=== PATIENT | female | born 1950 | race Caucasian/White ===

== ENCOUNTER 2019-09-27 15:25 | Observation (INO) | payer OTHER, MEDICARE ==
[2019-09-27] MEDS ORDERED: NA CHLORIDE 0.9% 1,000 ML ONE (16:24)
[2019-09-27] MEDS ORDERED: LORazepam 2 MG/ML VIAL ONE (16:24)
--- NOTE | 2019-09-27 16:33 | RAD REPORT ---
EXAM DESCRIPTION: CT - Head Brain Wo Cont - 09/27/2019 4:25 pm CLINICAL HISTORY: Dizziness, seizure, persistent symptoms following injury COMPARISON: None. TECHNIQUE: Axial 5 mm thick images of the head were obtained without IV contrast. All CT scans are performed using dose optimization technique as appropriate and may include automated exposure control or mA/KV adjustment according to patient size. FINDINGS: No intracranial hemorrhage, mass, edema or shift of mid-line structures. No acute infarcti on changes seen. No abnormal extra-axial fluid collections. Ventricles are normal. Mastoid air cells and visualized portions of the paranasal sinuses are clear. No acute bony findings. IMPRESSION: Negative non-contrast CT head examination.
[2019-09-27 17:03] LABS: Absolute Lymphocytes (CBC) 1.3 K/uL (0.7-4.9); Basophils % 0.6 % (0-1.3); Hematocrit 40.6 % (36.0-45.0); Lymphocytes % 19.2 % (15.3-44.8); MPV 8.1 fL (7.6-11.3); RBC Red Blood Cell Count 4.45 M/uL (3.86-4.86)
--- NOTE | 2019-09-27 17:14 | EKG ---
Test Date: 2019-09-27 Test Time: 16:35:21 [employer] Operator: LIZET MEASUREMENT RESULTS: Intervals: Rate: 64 NV: 212 QRSD: 90 QT: 394 QTc: 406 [place]: P: 98 NV: 212 QRS: 48 T: 74 INTERPRETIVE STATEMENTS: Sinus rhythm with 1st degree AV block Nonspecific T wave abnormality Abnormal ECG Compared to ECG 11/06/2016 19:30:29 First degree AV block now present T-wave abnormality now present Electronically Signed On 09-27-19 17:14:05 INTENSIVIST by Ashish Ken
[2019-09-27 17:29] LABS: ALT/SGPT 24 U/L (12-78); AST/SGOT 26 U/L (15-37); Alkaline Phosphatase 92 U/L (45-117); BUN Blood Urea Nitrogen 20 mg/dL (7-18); Bicarbonate 33 mmol/L (21-32); Bilirubin Direct 0.1 mg/dL (0-0.2); Bilirubin Total 0.4 mg/dL (0.2-1.0); Glucose Level 92 mg/dL (74-106); Lipase 129 U/L (73-393); Magnesium 2.9 mg/dL (1.8-2.4); NT PRO-BNP 39 pg/mL (<125); Protein, Total 7.7 g/dL (6.4-8.2); Sodium Level 137 mmol/L (136-145); Troponin (Emerg Dept Use Only) < 0.02 ng/mL (0.0-0.045)
--- NOTE | 2019-09-27 17:32 | RAD REPORT ---
EXAM DESCRIPTION: RAD - Chest Single View - 09/27/2019 4:49 pm CLINICAL HISTORY: Cough, shortness of breath COMPARISON: October 2016 TECHNIQUE: AP portable chest image was obtained 1638 hours . FINDINGS: Lungs are clear. Lung markings are similar to comparison. Heart and vasculature are normal . No measurable pleural effusion and no pneumothorax. No acute bony abnormality seen. No acute aortic findings suspected. IMPRESSION: No acute cardiopulmonary process.
[2019-09-27 17:33] LABS: Thyroid Stimulating Hormone 2.31 uIU/mL (0.360-3.740)
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
--- NOTE | 2019-09-27 18:07 | EDPHYS ---
Physician Documentation [facility] Name: Jo Ann Bonilla Age: 69 yrs Sex: Female : 1950 Arrival Date: 09/27/2019 Time: 15:32 Bed 5 Private MD: out of town, doctor ED Physician Fadi Najera HPI: 09/27 16:13 This 69 yrs old Female presents to ER via Wheelchair with complaints of pedro Headache, Probable Seizure. 16:13 The patient complains of pain to the top of head, forehead, left frontal area, left pedro side of the back of head, left occipital area, left base of the skull, right frontal area, right side of the back of head, right occipital area and right base of the skull. The patient describes the headache as aching. Onset: The symptoms/episode began/occurred 3 day(s) ago. Associated signs and symptoms: The patient has no apparent associated signs or symptoms. Severity of symptoms: At its worst the pain was moderate, in the emergency department the pain is unchanged. Headache History: Denies prior headaches. The symptoms are alleviated by nothing. the symptoms are aggravated by nothing. Historical: - Allergies: 16:00 PENICILLINS; aj1 - Home Meds: 16:00 levothyroxine 88 mcg tab 1 tab once daily [Active]; magnesium oxide 400 mg Oral tab aj1 three times a day [Active]; torsemide 40 mg oral tab 1 tab three times daily [Active]; carbamazepine 400 mg Oral Tb12 1 tab every 12 hours [Active]; Vitamin D3 5,000 unit oral tab daily [Active]; folic acid 1 mg Oral tab 1 tab once daily [Active]; potassium chloride 20 mEq Oral TbER 1 tab once daily [Active]; trazodone 150 mg Oral tab 1 tab at bedtime [Active]; primidone 50 mg oral tab once daily [Active]; aspirin 325 mg Oral TbEC 1 tab once daily [Active]; rizatriptan 10 mg oral TbDL 1 tab as needed [Active]; - PMHx: 16:00 Hypothyroidism; Chronic pain; fentanyl pain pump; aj1 - Immunization history:: Adult Immunizations up to date. - Social history:: Smoking status: Patient/guardian denies using tobacco. - Ebola Screening: : Patient denies travel to an Ebola-affected area in the 21 days before illness onset. ROS: 16:14 Constitutional: Negative for fever, chills, and weight loss, Eyes: Negative for injury, pedro pain, redness, and discharge, ENT: Negative for injury, pain, and discharge, Neck: Negative for injury, pain, and swelling, Cardiovascular: Negative for chest pain, palpitations, and edema, Respiratory: Negative for shortness of breath, cough, wheezing, and pleuritic chest pain, Abdomen/GI: Negative for abdominal pain, nausea, vomiting, diarrhea, and constipation, Back: Negative for injury and pain, : Negative for injury, bleeding, discharge, and swelling, MS/Extremity: Negative for injury and deformity, Skin: Negative for injury, rash, and discoloration, Allergy/Immunology: Negative for hives, rash, and allergies, Endocrine: Negative for neck swelling, polydipsia, polyuria, polyphagia, and marked weight changes, Hematologic/Lymphatic: Negative for swollen nodes, abnormal bleeding, and unusual bruising. 16:14 Constitutional: Positive for 16:14 Neuro: Positive for dizziness, seizure activity, weakness. Exam: 16:14 Constitutional: This is a well developed, well nourished patient who is awake, alert, pedro and in no acute distress. Head/Face: Normocephalic, atraumatic. Eyes: Pupils equal round and reactive to light, extra-ocular motions intact. Lids and lashes normal. Conjunctiva and sclera are non-icteric and not injected. Cornea within normal limits. Periorbital areas with no swelling, redness, or edema. ENT: Nares patent. No nasal discharge, no septal abnormalities noted. Tympanic membranes are normal and external auditory canals are clear. Oropharynx with no redness, swelling, or masses, exudates, or evidence of obstruction, uvula midline. Mucous membranes moist. Neck: Trachea midline, no thyromegaly or masses palpated, and no cervical lymphadenopathy. Supple, full range of motion without nuchal rigidity, or vertebral point tenderness. No Meningismus. Chest/axilla: Normal chest wall appearance and motion. Nontender with no deformity. No lesions are appreciated. Cardiovascular: Regular rate and rhythm with a normal S1 and S2. No gallops, murmurs, or rubs. Normal PMI, no JVD. No pulse deficits. Respiratory: Lungs have equal breath sounds bilaterally, clear to auscultation and percussion. No rales, rhonchi or wheezes noted. No increased work of breathing, no retractions or nasal flaring. Abdomen/GI: Soft, non-tender, with normal bowel sounds. No distension or tympany. No guarding or rebound. No evidence of tenderness throughout. Back: No spinal tenderness. No costovertebral tenderness. Full range of motion. Skin: Warm, dry with normal turgor. Normal color with no rashes, no lesions, and no evidence of cellulitis. MS/ Extremity: Pulses equal, no cyanosis. Neurovascular intact. Full, normal range of motion. Psych: Awake, alert, with orientation to person, place and time. Behavior, mood, and affect are within normal limits. 16:14 Neuro: Orientation: is normal, appropriate for stated age, no acute changes, Mentation: is normal, appropriate for stated age, no acute changes, Memory: appropriate for stated age, no acute changes, Cranial nerves: grossly normal, is grossly normal based on the patient's age, no acute changes, Cerebellar function: is grossly normal based on the patient's age, no acute changes, Motor: is normal, Sensation: no obvious gross deficits, appropriate no acute changes, Gait: not tested. Deep tendon reflexes are 2+ (normal) in the bilateral brachioradialis, bicep, tricep and patellar and Achilles tendons, Babinski testing is normal, seizure activity, is not displayed by the patient. Vital Signs: 16:00 BP 132 / 86; Pulse 82; Resp 18; Temp 98.5; Pulse Ox 99% on R/A; Weight 88.9 kg (R); aj1 Height 5 ft. 5 in. (165.10 cm) (R); Pain 10/10; 19:20 BP 104 / 61; Pulse 66; Resp 16; Pulse Ox 96% on R/A; Pain 8/10; lp1 20:37 BP 104 / 55; Pulse 60; Resp 16; Pulse Ox 97% on R/A; Pain 2/10; lp1 16:00 Body Mass Index 32.62 (88.90 kg, 165.10 cm) aj1 MDM: 16:00 Patient medically screened. [facility] 16:16 Data reviewed: vital signs, nurses notes, lab test result(s), EKG, radiologic studies, [facility] CT scan, plain films. 09/27 16:11 Order name: Basic Metabolic Panel; Complete Time: 18:00 [facility] 09/27 16:11 Order name: CBC with Diff; Complete Time: 18:00 [facility] 09/27 16:11 Order name: LFT's; Complete Time: 18:00 [facility] 09/27 16:11 Order name: Magnesium; Complete Time: 18:00 [facility] 09/27 16:11 Order name: NT PRO-BNP; Complete Time: 18:00 [facility] 09/27 16:11 Order name: PT-INR; Complete Time: 18:00 [facility] 09/27 16:11 Order name: Troponin (emerg Dept Use Only); Complete Time: 18:00 [facility] 09/27 16:11 Order name: XRAY Chest (1 view); Complete Time: 18:00 [facility] 09/27 16:11 Order name: Lipase; Complete Time: 18:00 [facility] 09/27 16:11 Order name: CT Head Brain wo Cont; Complete Time: 18:00 [facility] 09/27 16:11 Order name: Urine Culture [facility] 09/27 16:11 Order name: Tegretol Level; Complete Time: 18:00 [facility] 09/27 16:13 Order name: TSH; Complete Time: 18:00 [facility] 09/27 18:21 Order name: Urine Dipstick--Ancillary (enter results); Complete Time: 20:19 09/27 16:11 Order name: EKG; Complete Time: 16:12 [facility] 09/27 16:11 Order name: Cardiac monitoring; Complete Time: 16:59 [facility] 09/27 16:11 Order name: EKG - Nurse/Tech; Complete Time: 16:59 [facility] 09/27 16:11 Order name: IV Saline Lock; Complete Time: 16:59 [facility] 09/27 16:11 Order name: Labs collected and sent; Complete Time: 16:59 [facility] 09/27 16:11 Order name: O2 Per Protocol; Complete Time: 16:59 [facility] 09/27 19:29 Order name: CONS Pharmacy Consult [facility] 09/27 19:30 Order name: Regular [facility] 09/27 19:30 Order name: EEG Request [facility] 09/27 19:34 Order name: Brain Wo Cont [facility] 09/27 16:11 Order name: O2 Sat Monitoring; Complete Time: 16:59 [facility] 09/27 16:11 Order name: Urine Dipstick-Ancillary (obtain specimen); Complete Time: 18:18 pedro Administered Medications: 16:55 Drug: Ativan 1 mg Route: IVP; Site: left antecubital; hb 17:30 Follow up: Response: No adverse reaction hb 16:55 Drug: NS 0.9% 1000 ml Route: IV; Rate: 1 bolus; Site: left antecubital; hb 18:45 Drug: Rocephin 1 grams Route: IV; Rate: per protocol; Site: left antecubital; sg 20:31 Drug: Thiamine 100 mg Route: IV; Rate: bolus; Site: left antecubital; lp1 20:44 Follow up: IV Status: Completed infusion; IV Intake: 100ml lp1 20:31 Drug: foLIC Acid 1 mg Route: IVPB; Site: left antecubital; lp1 20:45 Follow up: IV Status: Completed infusion lp1 Disposition: 09/27/19 18:05 Hospitalization ordered by Mesha Silverman for Inpatient Admission. Preliminary diagnosis are Weakness, Headache, Epileptic seizures related to external causes, Syncope and collapse - near, Unspecified kidney failure, Volume depletion. - Bed requested for Telemetry/MedSurg (Inpatient). - Status is Inpatient Admission. lp1 - Condition is Fair. - Problem is new. - Symptoms have improved. UTI on Admission? No Signatures: Dispatcher [employer] EDIA Pat Mcdaniel RN RN aj1 Ponce Barth RN RN Fadi Najera MD MD cha Pena, Laura, RN RN lp1 Terri Obrien RN RN Samantha Pulido RN RN Corrections: (The following items were deleted from the chart) 19:34 19:30 Brain Wo Cont ordered. EDIA EDIA 19:54 18:05 Hospitalization Ordered by Mesha Silverman MD for Inpatient Admission. Preliminary cg diagnosis is Weakness; Headache; Epileptic seizures related to external causes; Syncope and collapse - near; Unspecified kidney failure; Volume depletion. Bed requested for Telemetry/MedSurg (Inpatient). Status is Inpatient Admission. Condition is Fair. Problem is new. Symptoms have improved. UTI on Admission? No. pedro 20:45 19:54 09/27/2019 18:05 Hospitalization Ordered by Mesha Silverman MD for Inpatient lp1 Admission. Preliminary diagnosis is Weakness; Headache; Epileptic seizures related to external causes; Syncope and collapse - near; Unspecified kidney failure; Volume depletion. Bed requested for Telemetry/MedSurg (Inpatient). Status is Inpatient Admission. Condition is Fair. Problem is new. Symptoms have improved. UTI on Admission? No. cg
[2019-09-27 18:23] LABS: Urine Blood NEGATIVE (NEG); Urine Glucose NEGATIVE (NEG); Urine Protein NEGATIVE (NEG); Urine Specific Gravity 1.015 (1.005-1.030)
[2019-09-27] MEDS ORDERED: CEFTRIAXONE/SWI 1gm 1 GM/10 ML SYR ONE (18:40)
[2019-09-27] MEDS ORDERED: MORPHINE 2 MG/ML SYR IV PRN (19:23)
[2019-09-27] MEDS ORDERED: ONDANSETRON 4 MG/2 ML VIAL IV PRN (19:23)
[2019-09-27] MEDS ORDERED: ACETAMINOPHEN 500 MG TAB PO PRN (19:23)
[2019-09-27] MEDS ORDERED: MORPHINE 2 MG/ML SYR ONE (20:11)
[2019-09-27] MEDS ORDERED: THIAMINE 200 MG/2 ML INJ ONE (20:26)
[2019-09-27] MEDS ORDERED: FOLIC ACID 5 MG/ML VIAL ONE (20:27)
[2019-09-27] MEDS ORDERED: NA CHLORIDE 0.9% 100 ML IV ONE (20:27)
[2019-09-27] MEDS: NA CHLORIDE 0.9% 1,000 ML IV SCH (23:23)
[2019-09-27] MEDS: levETIRAcetam 500 MG TAB PO SCH (23:23)
[2019-09-28 01:19] VITALS: BMI 34.6
[2019-09-28] MEDS ORDERED: FENTANYL CITR 100 MCG/2 ML IV ONE (01:20)
[2019-09-28] MEDS ORDERED: ALPRAZOLAM 0.5 MG TABLET PO ONE (01:21)
[2019-09-28 04:26] LABS: Absolute Lymphocytes (CBC) 2.2 K/uL (0.7-4.9); Basophils % 1.1 % (0-1.3); MPV 8.8 fL (7.6-11.3); RBC Red Blood Cell Count 3.68 M/uL (3.86-4.86)
[2019-09-28 04:55] LABS: Bilirubin Total 0.3 mg/dL (0.2-1.0); Potassium 3.3 mmol/L (3.5-5.1)
[2019-09-28] MEDS ORDERED: NA CHLORIDE 0.9% 500 ML IV ONE (06:27)
[2019-09-28] MEDS ORDERED: RIZATRIPTAN 10 MG PO PRN (06:28)
[2019-09-28] MEDS ORDERED: carBAMazepine 200 MG TAB PO SCH (07:00)
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
[2019-09-28] MEDS ORDERED: HOME MED 1 EA UNK (Potassium Chloride [Potassium Chloride] 20 MEQ) PO SCH (09:00)
[2019-09-28] MEDS: MAGNESIUM OXIDE 400 MG TAB PO SCH ×3 (09:00→22:06)
[2019-09-28] MEDS: carBAMazepine 200 MG TAB PO SCH ×2 (10:07→18:39)
[2019-09-28] MEDS: FOLIC ACID 1 MG TABLET PO SCH (10:07)
[2019-09-28] MEDS: levETIRAcetam 500 MG TAB PO SCH ×2 (10:07→22:06)
--- NOTE | 2019-09-28 10:25 | RAD REPORT ---
EXAM DESCRIPTION: MRI - Brain Wo Cont - 09/28/2019 8:14 am CLINICAL HISTORY: sz, left-sided head pain, vomiting and weakness COMPARISON: CT head September 27 TECHNIQUE: Sagittal T1-weighted images were obtained along with axial PD, heavily T2-weighted and T2 -FLAIR images. Axial DWI and ADC mapping sequences were also obtained along with coronal heavily T2-w eighted images. FINDINGS: No intracranial hemorrhage, mass or acute infarction. There is no edema or shift of midlin e structures. No measurable atrophy present. Patient has a few T2 white matter hyperintensities most typical for chronic ischemic change. Ventricles are normal. No globe or orbital content acute finding . No sella or supra sella abnormality. Patient has normal variant hyperostosis frontalis interna. Gra y-matter/white matter junction is preserved. Signal voids are seen as a normal finding in the major i ntracranial vessels. Mastoid air cells and paranasal sinuses are clear. IMPRESSION: Minimal chronic ischemic change scattered throughout the cerebral white matter. No acute intracranial finding.
--- NOTE | 2019-09-28 13:07 | ECHO ---
HEIGHT: 5 ft 5 in WEIGHT: 208 lb 0 oz DATE OF STUDY: 09/28/[address]: Tito Marte MD 2-DIMENSIONAL: YES M.MODE: YES DOPPLER: YES COLOR FLOW: YES TDS: NO PORTABLE: NO DEFINITY: NO BUBBLE STUDY: NO DIAGNOSIS: CONGESTIVE HEART FAILURE CARDIAC HISTORY: CATHERIZATION: NO SURGERY: NO PROSTHETIC VALVE: NO PACEMAKER: NO MEASUREMENTS (cm) DIASTOLIC (NORMALS) SYSTOLIC (NORMALS) IVSd 0.8 (0.6-1.2) LA Diam (1.9-4.0) LVEF 53% LVIDd 4.6 (3.5-5.7) LVIDs 3.3 (2.0-3.5) %FS 27% LVPWd 0.9 (0.6-1.2) Ao Diam 2.3 (2.0-3.7) 2 DIMENSIONAL ASSESSMENT: RIGHT ATRIUM: NORMAL LEFT ATRIUM: NORMAL RIGHT VENTRICLE: NORMAL LEFT VENTRICLE: NORMAL TRICUSPID VALVE: NORMAL MITRAL VALVE: NORMAL PULMONIC VALVE: NORMAL AORTIC VALVE: NORMAL PERICARDIAL EFFUSION: NONE AORTIC ROOT: NORMAL LEFT VENTRICULAR WALL MOTION: PARADOXICAL SEPTUM. DOPPLER/COLOR FLOW: MILD TRICUSPID REGURGITATION. COMMENTS: PARADOXICAL SEPTAL WALL MOTION. NORMAL EJECTION FRACTION. MILD TRICUSPID REGURGITATION NORMAL RIGHT VENTRICULAR SYSTOLIC PRESSURE. TECHNOLOGIST: DANIEL MONTAÑO
[2019-09-28] MEDS: NA CHLORIDE 0.9% 1,000 ML IV SCH (13:47)
[2019-09-28] MEDS: SUMATRIPTAN SUCC 6MG/0.5ML VIAL SQ PRN (14:17)
--- NOTE | 2019-09-28 17:41 | P.PN ---
Subjective Date of Service: 09/28/19 Chief Complaint: Seizure/persistent headache/history of traumatic brain injury Patient reporting persistent headache. Subsequent history taken from patient and her spouse. According to the patient, she was brought to the emergency department because she was found to be very weak at her doctor's office. She also reports being drowsy and sleeping most of the day over the last several weeks. She denied any sudden passing. Spouse reports patient had not had a grand mal seizure over a long period of time but does notice some tremors which he described as minor seizures. She is on pain pump for chronic lumbar pain. Physical Examination - Vital Signs Temperature: 97.1 F Blood Pressure: 101/57 Pulse: 56 Respirations: 16 Pulse Ox (%): 98 - Physical Exam General: Alert, In no apparent distress, Oriented x3 HEENT: Mucous membr. moist/pink Neck: Supple Respiratory: Clear to auscultation bilaterally, Normal air movement Cardiovascular: No edema, Normal pulses, Regular rate/rhythm, Normal S1 S2, No murmurs Gastrointestinal: Normal bowel sounds, Soft and benign, Non-distended, No tenderness Musculoskeletal: No swelling, No erythema Integumentary: No rashes, No tenderness/swelling Neurological: Normal speech, Normal strength at 5/5 x4 extr, Normal tone, Cranial nerves 3-12 intact - Studies Laboratory Data (last 24 hrs) 09/27/19 16:43: PT 11.8, INR 1.00 Assessment And Plan - Current Problems (Diagnosis) (1) Headache Current Visit: Yes Status: Acute Qualifiers: Headache type: unspecified Intractability: intractable (2) Migraine aura, persistent Current Visit: Yes Status: Acute Qualifiers: Intractability: intractable (3) H/O traumatic brain injury Current Visit: Yes Status: Chronic (4) Chronic pain disorder Onset Date: 11/07/16 Current Visit: No Status: Chronic (5) Seizure disorder Onset Date: 11/07/16 Current Visit: No Status: Chronic (6) Polypharmacy Current Visit: Yes Status: Acute - Plan MRI of the brain reviewed. No acute CVA. EEG has been performed and result is pending. I suspect polypharmacy for multiple psychotropic medication including clonazepam , trazodone, carbamazepine and opioids. Discontinue clonazepam. Case discussed with Dr. Pimentel. Carbamazepine level is upper limits of normal. Patient may not be tolerating this level. Keppra added for possible seizures until seizure has been ruled out. Dr. Jones to see and evaluate patient.
[2019-09-28] MEDS: TOPIRAMATE 25 MG TAB PO SCH (18:39)
[2019-09-28] MEDS ORDERED: PRIMIDONE 50 MG TAB PO SCH (21:00)
[2019-09-28] MEDS ORDERED: TRAZODONE 150 MG TAB PO SCH ×2 (21:00)
[2019-09-28] MEDS ORDERED: ASPIRIN 325 MG TAB PO SCH (21:00)
[2019-09-28] MEDS ORDERED: TRAZODONE 50 MG TABLET PO SCH (21:00)
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
[2019-09-29] MEDS: carBAMazepine 200 MG TAB PO SCH ×2 (00:13→08:08)
[2019-09-29] MEDS: SUMATRIPTAN SUCC 6MG/0.5ML VIAL SQ PRN (00:13)
[2019-09-29] MEDS: NA CHLORIDE 0.9% 1,000 ML IV SCH ×2 (03:25→12:00)
[2019-09-29 04:33] LABS: Absolute Lymphocytes (CBC) 1.6 K/uL (0.7-4.9); Basophils % 1.2 % (0-1.3); Hematocrit 31.7 % (36.0-45.0); Lymphocytes % 40.7 % (15.3-44.8); RBC Red Blood Cell Count 3.44 M/uL (3.86-4.86)
[2019-09-29 04:41] LABS: Potassium 4.1 mmol/L (3.5-5.1)
[2019-09-29] MEDS ORDERED: LEVOTHYROXINE SOD 0.088 MG TAB PO SCH (06:00)
[2019-09-29 08:02] VITALS: O2SAT 98
[2019-09-29] MEDS: MAGNESIUM OXIDE 400 MG TAB PO SCH ×2 (08:04→13:45)
[2019-09-29] MEDS: TOPIRAMATE 25 MG TAB PO SCH (08:04)
[2019-09-29] MEDS: levETIRAcetam 500 MG TAB PO SCH (08:04)
[2019-09-29] MEDS: FOLIC ACID 1 MG TABLET PO SCH (08:05)
--- NOTE | 2019-09-29 08:36 | EEG ---
CHART: [id number] TEST ID#: [id number] DATE OF STUDY: 09/28/2019 THE EEG WAS RECORDED IN THE EEG LABORATORY ON A 17 CHANNEL MACHINE. ELECTRODES WERE APPLIED IN THE USUAL MANNER USING THE INTERNATIONAL 10-20 SYSTEM. THE WAKING BACKGROUND RHYTHM IN THIS RECORD CONSISTS OF FAIRLY WELL DEVELOPED AND FAIRLY WELL ORGANIZED WAVES OF 7 HZ., IN A WIDE DISTRIBUTION WHICH ATTENUATE NORMALLY WITH EYE OPENING. LOW VOLTAGE 15-18 HZ ACTIVITY IS EXPRESED IN THE FRONTAL REGIONS. THERE ARE NO FOCAL OR LATERALIZING FEATURES. NO EPILEPTIFORM ACTIVITY APPEARS. SLEEP DID NOT OCCUR. HYPERVENTILATION WAS NOT PERFORMED. PHOTIC STIMULATION PRODUCED NO DRIVING BILATERALLY. IMPRESSION: THIS IS A MILDLY ABNORMAL ROUTINE EEG DUE TO A MILDLY SLOW BACKGROUND. THIS IS A NON-SPECIFIC FINDING INDICATING THE PRESENCE OF A MILD DIFFUSE DISTURBANCE IN CEREBRAL FUNCTION.
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
[2019-09-29 13:05] VITALS: BP 104/60; TEMP 97
--- OUTSIDE RECORDS SUMMARY | 2019-10-03 21:40 | XMS REPORT ---
:1950 [facility] Address [address] [place] [address] Care Team Providers Name Role Phone JONATHAN DALYMissy Unavailable Unavailable Problems This patient has no known problems. Allergies, Adverse Reactions, Alerts This patient has no known allergies or adverse reactions. Medications This patient has no known medications. Results Test Description Test Time Test Comments Text Results Atomic Results Result Comments POCT-HEMOGLOBIN METER 2018-12-07 05:55:00 Test Item Value Reference Range Comments POC-HEMOGLOBIN METER (BEAKER) (test 12.7 g/dL 12.0-15.0 TESTED AT [facility] [address] [facility] pjpo=[id number]) [facility] [id number] BASIC METABOLIC [id number] 13:48:00 Test Item Value Reference Range Comments SODIUM (BEAKER) (test 139 meq/L 136-145 ejar=610) POTASSIUM (BEAKER) (test 4.2 meq/L 3.5-5.1 qqwo=945) CHLORIDE (BEAKER) (test 100 meq/L 98-107 khbu=006) CO2 (BEAKER) (test 33 meq/L 22-29 sqhg=249) BLOOD UREA NITROGEN 14 mg/dL 7-21 (BEAKER) (test mjyh=025) CREATININE (BEAKER) (test 1.07 mg/dL 0.57-1.25 nzqh=933) GLUCOSE RANDOM (BEAKER) 83 mg/dL 70-105 (test zhck=306) CALCIUM (BEAKER) (test 8.8 mg/dL 8.4-10.2 nmrj=086) EGFR (BEAKER) (test 51 mL/min/1.73 sq m ESTIMATED GFR IS NOT xbzs=9931) ACCURATE CREATININE CLEARANCE IN PREDICTING GLOMERULAR FILTRATION RATE. ESTIMATED GFR IS NOT APPLICABLE FOR DIALYSIS PATIENTS.
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
== END 2019-09-29 13:58 | disposition home health service (06) ==
LOC: ER 15:25 → ERHOLD 20:15 → 4TH 20:16
PROVIDERS: ADMIT Hospitalist; ATTEND Internal Medicine
DX: G43.509 Persistent migraine aura without cerebral infarction, not intractable, without status migrainosus (principal); N17.9 Acute kidney failure, unspecified; F90.9 Attention-deficit hyperactivity disorder, unspecified type; G40.909 Epilepsy, unspecified, not intractable, without status epilepticus; F41.8 Other specified anxiety disorders; E03.9 Hypothyroidism, unspecified; G89.4 Chronic pain syndrome; G47.33 Obstructive sleep apnea (adult) (pediatric)
CPT/HCPCS: 95816; 93005; 93306; 87088; 85025 ×3; 87086; 80048 ×2; 36415 ×2; 83735; 80156; 85610; 80076; 84443; 81003; 84484; 83690; 80053; 83880; 70450; 71045; 70551; 97112; 97116; 97161; 96375; 96374; 99285; J3030 ×2; J3411; J3010; J2270; J0696; J7040; J7030 ×4; G0378 ×4

== ENCOUNTER 2019-12-03 19:41 | Emergency (ER) | payer OTHER, MEDICARE ==
--- OUTSIDE RECORDS SUMMARY | 2019-12-03 19:43 | XMS REPORT ---
:1950 [facility] Address [address] [place] [address] Care Team Providers Name Role Phone JONATHAN DALY Unavailable Unavailable Problems This patient has no known problems. Allergies, Adverse Reactions, Alerts This patient has no known allergies or adverse reactions. Medications This patient has no known medications. Results Test Description Test Time Test Comments Text Results Atomic Results Result Comments POCT-HEMOGLOBIN METER 2018-12-07 05:55:00 Test Item Value Reference Range Comments POC-HEMOGLOBIN METER (BEAKER) (test 12.7 g/dL 12.0-15.[address] [facility] [address] [place] [address] [id number]) [facility] [address] BASIC METABOLIC [id number] 13:48:00 Test Item Value Reference Range Comments SODIUM (BEAKER) (test 139 meq/L 136-145 xlvy=551) POTASSIUM (BEAKER) (test 4.2 meq/L 3.5-5.1 mnic=959) CHLORIDE (BEAKER) (test 100 meq/L 98-107 xhyq=713) CO2 (BEAKER) (test 33 meq/L 22-29 ikob=079) BLOOD UREA NITROGEN 14 mg/dL 7-21 (BEAKER) (test jkai=896) CREATININE (BEAKER) (test 1.07 mg/dL 0.57-1.25 zpbq=477) GLUCOSE RANDOM (BEAKER) 83 mg/dL 70-105 (test mjxk=471) CALCIUM (BEAKER) (test 8.8 mg/dL 8.4-10.2 jyip=041) EGFR (BEAKER) (test 51 mL/min/1.73 sq m ESTIMATED GFR IS NOT [id number]) ACCURATE CREATININE CLEARANCE IN PREDICTING GLOMERULAR FILTRATION RATE. ESTIMATED GFR IS NOT APPLICABLE FOR DIALYSIS PATIENTS.
[2019-12-03] MEDS ORDERED: MORPHINE 4 MG/ML SYR ONE ×2 (20:04→21:02)
[2019-12-03] MEDS ORDERED: ONDANSETRON 4 MG/2 ML VIAL ONE (20:04)
--- NOTE | 2019-12-03 20:48 | RAD REPORT ---
EXAM DESCRIPTION: RAD - Pelvis - 12/03/2019 8:39 pm CLINICAL HISTORY: Pelvic pain status post injury FINDINGS: No fracture or dislocation is seen. Osteoporosis If the patient continues to have symptoms to suggest an occult fracture then CT would be recommended
--- NOTE | 2019-12-03 20:49 | RAD REPORT ---
EXAM DESCRIPTION: RAD - Hip Left 2 View - 12/03/2019 8:38 pm CLINICAL HISTORY: Left hip pain status post injury FINDINGS: No fracture or dislocation is seen. Osteoporosis If the patient continues to have symptoms to suggest an occult fracture then CT would be recommended
[2019-12-03 21:34] LABS: Albumin 3.6 g/dL (3.4-5.0); Bilirubin Direct 0.1 mg/dL (0-0.2); Bilirubin Total 0.4 mg/dL (0.2-1.0); Potassium 4.1 mmol/L (3.5-5.1); Protein, Total 7.1 g/dL (6.4-8.2)
[2019-12-03 21:36] LABS: Absolute Lymphocytes (CBC) 1.4 K/uL (0.7-4.9); Basophils % 0.4 % (0-1.3); Lymphocytes % 23.5 % (15.3-44.8); MPV 7.8 fL (7.6-11.3); RBC Red Blood Cell Count 3.41 M/uL (3.86-4.86)
--- NOTE | 2019-12-03 22:43 | EDPHYS ---
Physician Documentation [facility] Name: Jo Ann Bonilla Age: 69 yrs Sex: Female : 1950 Arrival Date: 12/03/2019 Time: 19:46 Bed 17 Private MD: ED Physician Jairo Mccall HPI: 12/03 20:45 This 69 yrs old Female presents to ER via EMS with complaints of low back and kdr left hip pain. 20:45 Details of fall: The patient fell from seated position, out of a chair. Onset: The kdr symptoms/episode began/occurred suddenly, just prior to arrival. Associated injuries: The patient sustained upper back injury, contusion, pain, pain with movement, injury to the low back. Severity of symptoms: At their worst the symptoms were moderate, in the emergency department the symptoms are unchanged. The patient has not experienced similar symptoms in the past. The patient has not recently seen a physician. The patient was sitting in a bar chair that collapsed and she fell straight down. The patient then apparently had several seizures. The patient now has c-collar and is c/o pain on mid to low back. She denies had injury or LOC. Family reports several seizures after the fall. The patient is at baseline now. Historical: - Allergies: 19:55 PENICILLINS; 19:55 Depakote; 19:55 Dilantin; - PMHx: 19:55 Chronic pain; fentanyl pain pump; Hypothyroidism; - PSHx: 19:55 Spinal Fusion; - Immunization history:: Adult Immunizations up to date. - Social history:: Smoking status: Patient/guardian denies using tobacco. - Ebola Screening: : Patient negative for fever greater than or equal to 101.5 degrees Fahrenheit, and additional compatible Ebola Virus Disease symptoms Patient denies exposure to infectious person. ROS: 20:45 Constitutional: Negative for fever, chills, and weight loss, Eyes: Negative for injury, kdr pain, redness, and discharge, ENT: Negative for injury, pain, and discharge, Neck: Negative for injury, pain, and swelling, Cardiovascular: Negative for chest pain, palpitations, and edema, Respiratory: Negative for shortness of breath, cough, wheezing, and pleuritic chest pain, Abdomen/GI: Negative for abdominal pain, nausea, vomiting, diarrhea, and constipation, : Negative for injury, bleeding, discharge, and swelling, Skin: Negative for injury, rash, and discoloration, Neuro: Negative for headache, weakness, numbness, tingling, and seizure activity. Psych: Negative for depression, anxiety, suicide ideation, homicidal ideation, and hallucinations, Allergy/Immunology: Negative for hives, rash, and allergies, Endocrine: Negative for neck swelling, polydipsia, polyuria, polyphagia, and marked weight changes, Hematologic/Lymphatic: Negative for swollen nodes, abnormal bleeding, and unusual bruising. 20:45 Back: Positive for injury or acute deformity, decreased range of motion, pain at rest, pain with movement, of the thoracic area, low back area and mid back area, Negative for Exam: 20:45 Constitutional: This is a well developed, well nourished patient who is awake, alert, kdr and in no acute distress. Head/Face: Normocephalic, atraumatic. Eyes: Pupils equal round and reactive to light, extra-ocular motions intact. Lids and lashes normal. Conjunctiva and sclera are non-icteric and not injected. Cornea within normal limits. Periorbital areas with no swelling, redness, or edema. Neck: Trachea midline, no thyromegaly or masses palpated, and no cervical lymphadenopathy. Supple, full range of motion without nuchal rigidity, or vertebral point tenderness. No Meningismus. Chest/axilla: Normal chest wall appearance and motion. Nontender with no deformity. No lesions are appreciated. Cardiovascular: Regular rate and rhythm with a normal S1 and S2. No gallops, murmurs, or rubs. Normal PMI, no JVD. No pulse deficits. Respiratory: Lungs have equal breath sounds bilaterally, clear to auscultation and percussion. No rales, rhonchi or wheezes noted. No increased work of breathing, no retractions or nasal flaring. Abdomen/GI: Soft, non-tender, with normal bowel sounds. No distension or tympany. No guarding or rebound. No evidence of tenderness throughout. Skin: Warm, dry with normal turgor. Normal color with no rashes, no lesions, and no evidence of cellulitis. Neuro: Awake and alert, GCS 15, oriented to person, place, time, and situation. Cranial nerves II-XII grossly intact. Motor strength 5/5 in all extremities. Sensory grossly intact. Cerebellar exam normal. Normal gait. Psych: Awake, alert, with orientation to person, place and time. Behavior, mood, and affect are within normal limits. 20:45 Back: pain, that is moderate, ROM is painful, with all movement, normal spinal alignment noted, CVA tenderness, that is mild, is noted bilaterally, vertebral tenderness, is appreciated at thoracic spine and lumbar spine. Vital Signs: 19:53 BP 116 / 67; Pulse 75; Resp 18; Temp 98.2; Pulse Ox 100% ; Weight 82.55 kg; Height 5 wh ft. 5 in. (165.10 cm); Pain 10/10; 21:00 BP 134 / 110; Pulse 106; Resp 18; Pulse Ox 100% ; wh 22:14 BP 124 / 64; Pulse 71; Resp 18; Pulse Ox 99% on R/A; Pain 5/10; wh 23:40 BP 111 / 64; Pulse 72; Resp 18; Pulse Ox 97% on R/A; wh 19:53 Body Mass Index 30.29 (82.55 kg, 165.10 cm) wh MDM: 20:45 Data reviewed: vital signs, nurses notes, lab test result(s), radiologic studies. kdr Counseling: I had a detailed discussion with the patient and/or guardian regarding: the historical points, exam findings, and any diagnostic results supporting the discharge/admit diagnosis, lab results, radiology results. 22:42 Patient medically screened. kdr 12/04 00:11 ED course: The patient was improved with the care and interventions provided. The were kdr happy with the plan for discharge and follow-up. She was able to get out of bed and transfer to a chair with little more than her usual pain. 12/03 18:59 Order name: Amylase, Serum; Complete Time: : 12/03 18:59 Order name: Basic Metabolic Panel; Complete Time: : 12/03 18:59 Order name: CBC with Diff; Complete Time: : 12/03 18:59 Order name: Creatinine for Radiology; Complete Time: 00: 12/03 18:59 Order name: ETOH Level; Complete Time: 00:41 12/03 18:59 Order name: Hepatic Function; Complete Time: : 12/03 18:59 Order name: Lipase; Complete Time: 22: 12/03 19:59 Order name: Type And Screen; Complete Time: : 12/03 20:01 Order name: Pelvis XRAY; Complete Time: : [facility] 12/03 20:01 Order name: Hip Left 2 View XRAY; Complete Time: : [facility] 12/03 20:44 Order name: CT Traumagram (Head C Spine CAP wo con) kdr 12/03 19:59 Order name: EKG; Complete Time: 20:00 12/03 19:59 Order name: EKG - Nurse/Tech; Complete Time: 20:29 12/03 19:59 Order name: IV Saline Lock; Complete Time: : 12/03 19:59 Order name: Labs collected and sent; Complete Time: : 12/03 19:59 Order name: NPO; Complete Time: 20:30 12/03 19:59 Order name: O2 Per Protocol; Complete Time: 20:30 12/03 19:59 Order name: O2 Sat Monitoring; Complete Time: 20:30 Administered Medications: 12/03 20:25 Drug: morphine 4 mg Route: IM; Site: left gluteus; wh 23:27 Follow up: Response: No adverse reaction; Pain is decreased; RASS: Alert and Calm (0) 20:29 Not Given ( changed order): morphine 4 mg IVP once; RASS on ADMIN: Combtv4, Very wh Agttd3, Agttd2, Rstlss1, AlertClm0, Drwsy-1, Lt Sdtn-2, Mod Sdtn-3, Dp Sdtn-4, UnArsble-5 21:04 Drug: Zofran 4 mg Route: IVP; Site: left antecubital; wh 23:27 Follow up: Response: No adverse reaction; Nausea is decreased wh 21:04 Drug: morphine 4 mg Route: IVP; Site: left antecubital; 23:27 Follow up: Response: No adverse reaction; Pain is decreased; RASS: Alert and Calm (0) 23:24 Drug: fentaNYL (PF) 50 mcg Route: IVP; Site: left antecubital; wh 23:42 Follow up: Response: No adverse reaction; Pain is decreased; RASS: Alert and Calm (0) 23:26 Drug: Robaxin 1 grams Route: IVPB; Infused Over: 1 hrs; Site: left antecubital; 12/04 00:22 Follow up: Response: No adverse reaction; Pain is decreased; IV Status: Completed infusion Disposition: 12/03/19 22:42 Discharged to Home. Impression: Other slipping, tripping and stumbling and falls, Low back pain, Contusion of back wall of thorax, Contusion of lower back and pelvis. - Condition is Stable. - Discharge Instructions: Musculoskeletal Pain, Back Pain, Adult, [id number], Heat Therapy, [id number]. - Prescriptions for Robaxin 500 mg Oral Tablet - take 2 tablet by ORAL route every 6 hours As needed; 40 tablet. Tramadol 50 mg Oral Tablet - take 1 tablet by ORAL route every 8 hours as needed; 12 tablet. Medrol (Faisal) 4 mg Oral Tablets, Dose Pack - take 1 tablet by ORAL route as directed - follow package instructions; 1 packet. - Medication Reconciliation Form, Thank You Letter, Prescription Opioid Use form. - Follow up: Private Physician; When: 2 - 3 days; Reason: If symptoms return, Further diagnostic work-up, Recheck today's complaints, Continuance of care, Re-evaluation by your physician. - Problem is new. - Symptoms have improved. Signatures: Dispatcher [employer] EDMS Jairo Mccall MD MD kdr [place], [place] Corrections: (The following items were deleted from the chart) 00:22 12/03 22:42 12/03/2019 22:42 Discharged to Home. Impression: Other slipping, tripping wh and stumbling and falls; Low back pain; Contusion of back wall of thorax; Contusion of lower back and pelvis. Condition is Stable. Forms are Medication Reconciliation Form, Thank You Letter, Antibiotic Education, Prescription Opioid Use. Follow up: Private Physician; When: 2 - 3 days; Reason: If symptoms return, Further diagnostic work-up, Recheck today's complaints, Continuance of care, Re-evaluation by your physician. Problem is new. Symptoms have improved. kdr
--- NOTE | 2019-12-03 22:43 | ER ---
Nurse's Notes [facility] Name: Jo Ann Bonilla Age: 69 yrs Sex: Female : 1950 Arrival Date: 12/03/2019 Time: 19:46 Bed 17 Private MD: Diagnosis: Other slipping, tripping and stumbling and falls;Low back pain;Contusion of back wall of thorax;Contusion of lower back and pelvis Presentation: 12/03 19:48 Presenting complaint: EMS states: Pt fell from a wooden chair when it broke. Pt C/O wh lumbar pain shooting down on left leg and decrease sensation on left leg. Pt with Hx of seizure per family states Pt had episode of seizure because of the severe pain. Pt with Hx of chronic back pain with spinal fusion 6 years ago. Pt with fentanyl pain pump. Denies hitting head or LOC. Transition of care: patient was not received from another setting of care. Onset of symptoms was December 03, 2019. Risk Assessment: Do you want to hurt yourself or someone else? Patient reports no desire to harm self or others. Initial Sepsis Screen: Does the patient meet any 2 criteria? No. Patient's initial sepsis screen is negative. Does the patient have a suspected source of infection? No. Patient's initial sepsis screen is negative. Care prior to arrival: Cervical collar in place. IV initiated. 22 GA, in the left hand, Glucose check: 127. 19:48 Method Of Arrival: EMS: [facility] 19:48 Acuity: EM 3 Historical: - Allergies: 19:55 PENICILLINS; 19:55 Depakote; 19:55 Dilantin; - PMHx: 19:55 Chronic pain; fentanyl pain pump; Hypothyroidism; - PSHx: 19:55 Spinal Fusion; - Immunization history:: Adult Immunizations up to date. - Social history:: Smoking status: Patient/guardian denies using tobacco. - Ebola Screening: : Patient negative for fever greater than or equal to 101.5 degrees Fahrenheit, and additional compatible Ebola Virus Disease symptoms Patient denies exposure to infectious person. Screenin:55 Abuse screen: Denies threats or abuse. Denies injuries from another. Nutritional wh screening: No deficits noted. Tuberculosis screening: No symptoms or risk factors identified. Fall Risk None identified. Assessment: 20:00 General: Appears in no apparent distress. uncomfortable, Behavior is crying. Pain: wh Complains of pain in lumbar spine and mid back area Pain radiates to left leg Pain currently is 10 out of 10 on a pain scale. Quality of pain is described as shooting, Pain began 1 hour ago. Neuro: Level of Consciousness is awake, alert, obeys commands, Oriented to person, place, time, situation, Appropriate for age. Cardiovascular: Heart tones S1 S2. Respiratory: Airway is patent Respiratory effort is even, unlabored, Respiratory pattern is regular, symmetrical, Breath sounds are clear bilaterally. GI: Abdomen is flat, non-distended. : No signs and/or symptoms were reported regarding the genitourinary system. EENT: No signs and/or symptoms were reported regarding the EENT system. Derm: Skin is intact, is healthy with good turgor, Skin is pink, warm \T\ dry. normal. Musculoskeletal: Circulation, motion, and sensation intact. 21:05 Reassessment: Patient appears in no apparent distress at this time. No changes from previously documented assessment. Patient and/or family updated on plan of care and expected duration. Pain level reassessed. Patient is alert, oriented x 3, equal unlabored respirations, skin warm/dry/pink. 22:12 Reassessment: Patient appears in no apparent distress at this time. No changes from previously documented assessment. Patient and/or family updated on plan of care and expected duration. Pain level reassessed. Patient is alert, oriented x 3, equal unlabored respirations, skin warm/dry/pink. 23:30 Reassessment: Patient appears in no apparent distress at this time. No changes from previously documented assessment. Patient and/or family updated on plan of care and expected duration. Pain level reassessed. Patient is alert, oriented x 3, equal unlabored respirations, skin warm/dry/pink. Explained POC. Vital Signs: 19:53 BP 116 / 67; Pulse 75; Resp 18; Temp 98.2; Pulse Ox 100% ; Weight 82.55 kg; Height 5 wh ft. 5 in. (165.10 cm); Pain 10/10; 21:00 BP 134 / 110; Pulse 106; Resp 18; Pulse Ox 100% ; wh 22:14 BP 124 / 64; Pulse 71; Resp 18; Pulse Ox 99% on R/A; Pain 5/10; wh 23:40 BP 111 / 64; Pulse 72; Resp 18; Pulse Ox 97% on R/A; wh 19:53 Body Mass Index 30.29 (82.55 kg, 165.10 cm) ED Course: 19:46 Patient arrived in ED. rv 19:48 Ramirez Paniagua is Primary Nurse. wh 19:51 Triage completed. wh 19:52 Jairo Mccall MD is Attending Physician. kdr 19:56 Patient has correct armband on for positive identification. Placed in gown. Bed in low wh position. Call light in reach. Side rails up X 1. Pulse ox on. NIBP on. 19:56 Arm band placed on right wrist. wh 20:38 Pelvis XRAY In Process Unspecified. EDMS 20:38 Hip Left 2 View XRAY In Process Unspecified. EDMS 20:55 Initial lab(s) drawn, by me, sent to lab. T\T\S collected, blood band applied to patient. aa1 Inserted saline lock: 22 gauge in left antecubital area, using aseptic technique. Blood collected. 21:36 CT Traumagram (Head C Spine CAP wo con) In Process Unspecified. EDMS 23:41 No provider procedures requiring assistance completed. IV discontinued, intact, wh bleeding controlled, No redness/swelling at site. Administered Medications: 20:25 Drug: morphine 4 mg Route: IM; Site: left gluteus; 23:27 Follow up: Response: No adverse reaction; Pain is decreased; RASS: Alert and Calm (0) 20:29 Not Given ( changed order): morphine 4 mg IVP once; RASS on ADMIN: Combtv4, Very wh Agttd3, Agttd2, Rstlss1, AlertClm0, Drwsy-1, Lt Sdtn-2, Mod Sdtn-3, Dp Sdtn-4, UnArsble-5 21:04 Drug: Zofran 4 mg Route: IVP; Site: left antecubital; 23:27 Follow up: Response: No adverse reaction; Nausea is decreased 21:04 Drug: morphine 4 mg Route: IVP; Site: left antecubital; 23:27 Follow up: Response: No adverse reaction; Pain is decreased; RASS: Alert and Calm (0) 23:24 Drug: fentaNYL (PF) 50 mcg Route: IVP; Site: left antecubital; 23:42 Follow up: Response: No adverse reaction; Pain is decreased; RASS: Alert and Calm (0) 23:26 Drug: Robaxin 1 grams Route: IVPB; Infused Over: 1 hrs; Site: left antecubital; 12/04 00:22 Follow up: Response: No adverse reaction; Pain is decreased; IV Status: Completed infusion Outcome: 12/03 22:42 Discharge ordered by . [facility] 23:41 Discharged to home via wheelchair, with family. 23:41 Condition: stable 23:41 Discharge instructions given to patient, family, Instructed on discharge instructions, follow up and referral plans. medication usage, Demonstrated understanding of instructions, follow-up care, medications, POC Prescriptions given X 3. 12/04 00:22 Patient left the ED. Signatures: Dispatcher [employer] EDMS Martha Pimentel RN RN aa1 Jairo Mccall MD MD [facility] Ramirez Paniagua Christopher Sutton RN RN rv Corrections: (The following items were deleted from the chart) 12/03 22:16 22:14 BP 124 / 64; Pulse 71bpm; Resp 18bpm; Pulse Ox 99% RA; [facility] 23:42 23:41 Discharge instructions given to patient, family, Instructed on discharge instructions, follow up and referral plans. medication usage, Demonstrated understanding of instructions, follow-up care, medications, POC Prescriptions given X 2,
[2019-12-03] MEDS ORDERED: NA CHLORIDE 0.9% 100 ML IV ONE (23:20)
[2019-12-03] MEDS ORDERED: METHOCARBAMOL 1,000 MG/10 ML VIAL IV ONE (23:20)
[2019-12-03] MEDS ORDERED: FENTANYL CITR 100 MCG/2 ML ONE (23:23)
[2019-12-04 00:37] VITALS: TEMP 98.2
[2019-12-04 00:42] VITALS: BP 111/64; O2SAT 97
--- NOTE | 2019-12-05 06:39 | EKG ---
Test Date: 2019-12-03 Test Time: 20:06:11 Interactive Media Specialist: TAVO MEASUREMENT RESULTS: Intervals: Rate: 77 CA: 204 QRSD: 80 QT: 386 QTc: 436 Fenton: P: -15 CA: 204 QRS: 7 T: 7 INTERPRETIVE STATEMENTS: Normal sinus rhythm Normal ECG Compared to ECG 09/27/2019 16:35:21 First degree AV block no longer present T-wave abnormality no longer present Electronically Signed On 12-05-19 06:38:08 YARN CLEANER by Ashish Ken
--- NOTE | 2019-12-06 11:23 | RAD REPORT ---
EXAM DESCRIPTION: CT - Head C Spine Cap Wo Con - 12/04/2019 8:17 am CLINICAL HISTORY: 69 years Female LOWER BACK PAIN TECHNIQUE: Contiguous axial CT images obtained through the brain and cervical spine without IV contr ast. Coronal and sagittal reformatted images also provided. This CT exam was performed according to our departmental dose-optimization program, which includes on e or more of the following dose reduction techniques: automated exposure control, adjustment of the m A and/or kV according to patient size, and/or use of iterative reconstruction technique. COMPARISON: No prior exams provided for comparison. FINDINGS: There is no acute skull fracture, intracranial hemorrhage, extraaxial collection, or acute transcortical infarction. The ventricles are normal in size and contour without mass effect or midli ne shift. The visualized paranasal sinuses, tympanomastoid cavities, and orbits are normal. There is no acute cervical fracture or spondylolisthesis. There is mild multilevel degenerative disc disease and uncovertebral arthrosis scattered in the cervi juan spine. No aggressive osseous lesion. No prevertebral or paraspinal soft tissue swelling. At C3-C4, there is mild right neural foraminal stenosis. At C4-C5, there is flattening of the ventral aspect of the thecal sac with moderate bilateral neural foraminal stenosis. At C5-C6, there is mild central canal stenosis with severe right and moderate to severe left neural f oraminal stenosis. At C6-C7, there is moderate bilateral neural foraminal stenosis. There are is no acute fracture in the chest or thoracic spine. There is no mediastinal hematoma, pe ricardial effusion, pleural effusion, or pneumothorax. The heart is normal in size and there is no thoracic aortic aneurysm or dissection. The lungs are clear without focal consolidation. No enlar ged mediastinal lymph nodes. The central airways are patent. There are no acute lumbar or pelvic fractures. Prior posterior decompression, discectomy, and fusio n at L3-L4. Spinal stimulator device anterior to the right lower quadrant with its lead entering the central canal between the L1 and L2 spinous processes and courses cranially to the level of T5-T6. Prior cholecystectomy without biliary dilatation. The unenhanced liver, pancreas, spleen, adrenal glands, kidneys, and urinary bladder demonstrate no a cute findings. There is no retroperitoneal hemorrhage, ascites, or free intraperitoneal air. The abdominal aorta and its branches are normal. Sigmoid diverticulosis. There is no bowel obstruction or wall thickening. IMPRESSION: No acute injury in the head, cervical spine, chest, abdomen, or pelvis. Chronic degenerative changes in the cervical spine as described. Postsurgical changes in the lumbar spine. Electronically signed by: Amirah Palencia MD 12/03/2019 10:12 PM FOIL STAMP OPERATOR Due to temporary technical issues with the PACS/Fluency reporting system, reports are being signed by the in house radiologist as a courtesy to ensure prompt reporting. The interpreting radiologist is f ully responsible for the content of the report.
== END 2019-12-04 00:22 | disposition home or self-care (01) ==
LOC: ER 19:41
DX: S30.0XXA Contusion of lower back and pelvis, initial encounter (principal); S20.229A Contusion of unspecified back wall of thorax, initial encounter; W01.0XXA Fall on same level from slipping, tripping and stumbling without subsequent striking against object, initial encounter; Y93.89 Activity, other specified; Y92.9 Unspecified place or not applicable; E03.9 Hypothyroidism, unspecified; Z88.0 Allergy status to penicillin; Z88.5 Allergy status to narcotic agent; Z88.8 Allergy status to other drugs, medicaments and biological substances
CPT/HCPCS: 96365; 93005; 85025; 80048; 36415; 80320; 82150; 86900; 86850; 86901; 80076; 83690; 70450; 71250; 72125; 72170; 73502; 96375; 96372; 99284; J3010; J2405; J2800